=== PATIENT | male | born 1960 | race Caucasian/White ===

== ENCOUNTER 2016-09-19 18:16 | Emergency (ER) | payer OTHER ==
[2016-09-19 18:30] VITALS: BP 176/84
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
== END 2016-09-19 21:14 | disposition home or self-care (01) ==
LOC: ED 18:16
DX: M54.9 Dorsalgia, unspecified (principal); R51 Headache; Z04.1 Encounter for examination and observation following transport accident
CPT/HCPCS: 70450; 99282

== ENCOUNTER 2018-12-03 15:09 | Emergency (ER) | payer OTHER, BC ==
--- NOTE | 2018-12-03 18:43 | ED ---
Neurological HPI - HPI Summary HPI Summary: 58 yo male [place] [facility] accompanied by his . Pt tells me that for the last week has felt fatigued and has had an intermittent mild generalized headache. Yesterday he developed some left lower lip numbness. Today his daughter came home from [place] and remarked that pt's left mouth looked like it was drooping. Pt's agreed with this and brought him to the ED for concerns about CVA. Pt currently endorses left lower lip numbness and very mild headache, but no other symptoms. He did have a cold about 2-3 weeks ago, but has improved. Denies fever, chills, SOB, chest pain, palpitations, abdominal pain, n/v, dizziness, weakness, or vision changes. PMHx positive for HTN and HLD. Fam hx in mother and father with CVA. - History of Current Complaint Chief Complaint: EDNeurologicalDeficit Stated Complaint: LIGHTHEADED/NUMBNESS LT SIDE MOUTH PER PT Time Seen by Provider: 12/03/18 18:43 Hx Obtained From: Patient, Family/Burial Agent Pain Intensity: 0 - Allergy/Home Medications Allergies/Adverse Reactions: Allergies Allergy/AdvReac Type Severity Reaction Status Date / Time No Known Allergies Allergy Verified 12/03/18 15:17 Home Medications: Home Medications Aspirin 81 mg CHEW TAB* [Aspirin Low Dose TAB*] 81 mg PO DAILY 12/03/18 [ History Confirmed 12/03/18] Losartan TAB* [Cozaar TAB*] 50 mg PO DAILY 12/03/18 [History Confirmed 12/03/18] Simvastatin 20 mg PO DAILY 12/03/18 [History Confirmed 12/03/18] PMH/Surg Hx/FS Hx/Imm Hx Endocrine/Hematology History: Denies: Hx Anticoagulant Therapy - ASA daily, Hx Blood Disorders, Hx Unexplained Bleeding - Surgical History Surgery Procedure, Year, and Place: inguinal hernia repair, appendectomy Infectious Disease History: No Infectious Disease History: Denies: Traveled Outside the [place] in Last 30 Days - Family History Known Family History: Positive: None - Social History Alcohol Use: Daily Alcohol Amount: wine Substance Use Type: Reports: None Smoking Status (MU): Former Smoker Review of Systems Constitutional: Negative Eyes: Negative ENT: Negative Cardiovascular: Negative Respiratory: Negative Gastrointestinal: Negative Genitourinary: Negative Musculoskeletal: Negative Skin: Negative Positive: Headache, Numbness - left lip Psychological: Normal All Other Systems Reviewed And Are Negative: Yes Physical Exam - Summary Physical Exam Summary: GENERAL: NAD. WDWN. No pain distress. SKIN: No rashes, sores, ulcers, masses, lesions. HEENT: Head: AT/NC. Eyes: PERRLA. EOM intact. Conjunctiva clear without inflammation or discharge. Ears: Hearing grossly normal. TMs intact, no bulging, erythema, or edema. No hemotympanum Nose: Nasal mucosa pink and moist. NTTP maxillary and frontal sinus. Throat: Posterior oropharynx without exudates, erythema, or tonsillar enlargement. Uvula midline. NECK: Supple. Nontender. FROM CHEST: CTAB. No r/r/w. No accessory muscle use. Breathing comfortably and in no distress. CV: RRR. Without m/r/g. Pulses intact. Brisk cap refill. ABDOMEN: Soft. NTTP. Bowel sounds present MSK: FROM in B/L UEs and LEs with symmetric strength. NEURO: A&Ox3. 3 word recall, remote, recent memory, ability to follow 2-step directions, and attention intact. CN: II: Peripheral live intact. Vision normal. III, IV, : EOMI. No nystagmus. PERRLA. V: Sensations intact and symmetric. Opens mouth and clenches teeth. VII: No facial asymmetry. Forehead wrinkles. Grins, shuts eyes, frowns, puffs cheeks. VIII: Hearing intact to finger rub. IX, X: Swallows and coughs. Uvula midline. XI: Shrugs shoulders. Turns head against resistance. XII: No tongue deviation [id number] are intact. Gait with normal base. Romberg: maintains balance, no pronator drift. Normal speech. No facial drooping. PSYCH: Age appropriate behavior. Triage Information Reviewed: Yes Vital Signs On Initial Exam: Initial Vitals Temp Pulse Resp BP Pulse Ox 97.4 F 68 16 166/118 97 12/03/18 15:11 12/03/18 15:11 12/03/18 15:11 12/03/18 15:11 12/03/18 15:11 Vital Signs Reviewed: Yes Diagnostics - Vital Signs Vital Signs Temp Pulse Resp BP Pulse Ox 12/03/18 15:11 97.4 F 68 16 166/118 97 - Laboratory Lab Results: Laboratory Tests 12/03/18 12/03/18 19:03 19:03 WBC 6.4 RBC 4.80 Hgb 14.1 Hct 42 MCV 88 MCH 29 MCHC 33 RDW 14 Plt Count 200 MPV 8.4 Neut % (Auto) 66.9 Lymph % (Auto) 25.0 [place] % (Auto) 6.3 Eos % (Auto) 1.0 Baso % (Auto) 0.8 Absolute Neuts (auto) 4.3 Absolute Lymphs (auto) 1.6 Absolute Monos (auto) 0.4 Absolute Eos (auto) 0.1 Absolute Basos (auto) 0.1 Absolute Nucleated RBC 0 Nucleated RBC % 0 Sodium 137 Potassium 4.1 Chloride 104 Carbon Dioxide 30 Anion Gap 3 BUN 25 H Creatinine 0.96 Est GFR ( Amer) 97.3 Est GFR (Non-Af Amer) 80.5 BUN/Creatinine Ratio 26.0 H Glucose 96 Calcium 8.9 Total Bilirubin 0.50 AST 27 ALT 27 Alkaline Phosphatase 54 Total Protein 6.6 Albumin 4.2 Globulin 2.4 Albumin/Globulin Ratio 1.8 Result Diagrams: 12/03/18 19:03 12/03/18 19:03 Lab Statement: Any lab studies that have been ordered have been reviewed, and results considered in the medical decision making process. NIH Scale - NIH Scale Level of Consciousness: Alert/Keenly Responsive Ask Patient the Month and His/Her Age: Both Correct Ask Pt to Open/Close Eyes and Machine Hand/Release Non-Paretic Hand: Both Correctly Best Gaze (Only Horizontal Eye Movement): Normal Visual Field Testing: No Visual Loss Facial Paresis-Pt to Smile & Close Eyes or Grimace Symmetry: Normal/Symmetrical Motor Function - Right Arm: No Drift-Holds 10 Seconds Motor Function - Left Arm: No Drift-Holds 10 Seconds Motor Function - Right Leg: No Drift-Holds 10 Seconds Motor Function - Left Leg: No Drift-Holds 10 Seconds Limb Ataxia-Must be out of Proportion to Weakness Present: Absent Sensory (Use Pinprick to Test Arms/Legs/Trunk/Face): Normal Best Language (Describe Picture, Name Items): No Aphasia Dysarthria (Read Several Words): Normal Extinction and Inattention: No Abnormality Total Score: 0 Course/Dx - Course Course Of Treatment: EKbpm Sinus martine. No STEMI as read by Dr. Easton. CT : IMPRESSION: 1. No acute intracranial hemorrhage or acute territorial type infarct. 2. There is minimal periventricular white matter hypodensity, likely. representing small vessel ischemic disease in a patient this age. 3. If further evaluation is clinically indicated, an MRI of the brain is. recommended. Given pt symptoms/risk factors, CT findings, and fam hx - consulted with Dr. Vickers of neurology as below -- MRI was able to be obtained. MRI: IMPRESSION: 1. No restricted diffusion within the brain to suggest acute ischemic change. 2. There are several tiny foci of FLAIR hyperintensity within the cerebral. white matter. In a patient this age, this likely represents chronic small. vessel ischemic disease. 3. There is an increase in FLAIR signal intensity involving the left transverse. and sigmoid venous sinuses, suggestive of slow flow or thrombosis. This can be. further evaluated with MRV. 4. Minimal to mild sulcal atrophy. Spoke with Dr. Vickers at 2245 and discussed MRI results. She recommended attending eval pt and consider CT venous to further evaluate, but advised contacting radiology given already having contrast with MR. Examined with Dr. Boles 2300 and she agreed with the plan. Spoke with Dr. Moss of radiology - ideal to wait at least 24hrs due to increased risk of renal injury, but if clinically indicated and may change care then proceed with CTV. Pt was given 1L NS and CTV ordered as potential benefit of imaging was greater than the potential risk of renal injury. At this time, pt's approached me and made me aware that pt has been bitten by many ticks in his lifetime and has had lyme disease in the past. Will add on a test for a lyme panel. CTV: IMPRESSION: 1. No abnormal enhancing intracranial mass is identified. 2. There is normal enhancement of the dural venous sinuses, without evidence of. thrombosis. Discussed results with pt and family with Dr. Boles. At this time, pt's daughter was present during the conversation (whom initially saw mouth "droop"). Daughter stated that it was 12/01 that she noticed this "droop". All questions were answered. At this time, I do not believe pt suffered a TIA. Pt was instructed to hydrate with lots of water given his contrasted studies today. If his symptoms worsen if he develops new symptoms to return to the ED. Pt voiced understanding and agrees with the plan. - Diagnoses Provider Diagnoses: Facial numbness - Physician Notifications Discussed Care Of Patient With: Lulu Vickers Time Discussed With Above Provider: 21:00 - If able, obtain MRI given significant risk factors and continued symptoms. Discharge - Sign-Out/Discharge Documenting (check all that apply): Patient Departure Patient Received Moderate/Deep Sedation with Procedure: No - Discharge Plan Condition: Stable Disposition: HOME Patient Education Materials: Paresthesia (ED) Referrals: Dylan Estrada MD [Primary Care Provider] - As Soon As Possible Additional Instructions: If you develop a fever, shortness of breath, chest pain, new or worsening symptoms - please call your PCP or go to the ED. Please schedule a follow up appointment with your Primary Doctor as soon as possible for a recheck. Your lyme disease test is still pending and will likely take 3-5 days to be completed. Please check with your primary doctor for these results. Drink plenty of water - Billing Disposition and Condition Condition: STABLE Disposition: Home
[2018-12-03 19:13] LABS: ABS Basophils 0.1 10^3/ul (0-0.2); ABS Eosinophils 0.1 10^3/ul (0-0.6); ABS Lymphocytes 1.6 10^3/ul (1.0-4.8); ABS Monocytes 0.4 10^3/ul (0-0.8); ABS Neutrophils 4.3 10^3/ul (1.5-7.7); ABS Nucleated RBC 0 10^3/ul; Hematocrit 42 % (36-46); Hemoglobin 14.1 g/dL (14.0-18.0); Mean Corpuscular HGB Conc 33 g/dL (31-36); Mean Corpuscular Hemoglobin 29 pg (27-31); Mean Corpuscular Volume 88 fL (80-94); Mean Platelet Volume 8.4 fL (7.4-10.4); Nucleated Red Blood Cells % 0; Platelet Count 200 10^3/uL (150-450); Red Cell Distribution Width 14 % (10.5-15); White Blood Count 6.4 10^3/uL (3.5-10.8)
[2018-12-03 19:28] LABS: Albumin 4.2 g/dL (3.2-5.2); Albumin/Globulin Ratio 1.8 (1-3); Calcium 8.9 mg/dL (8.6-10.3); EGFR African American 97.3 (>60); EGFR Non-African American 80.5 (>60); Globulin 2.4 g/dL (2-4); Potassium 4.1 mmol/L (3.5-5.0); Total Bilirubin 0.5 mg/dL (0.2-1.0); Total Protein 6.6 g/dL (6.4-8.9)
[2018-12-03] MEDS ORDERED: Gadoteridol* (CONTRAST) 279.3 MG/ML 10 ML IV ONE (21:29)
[2018-12-03] MEDS ORDERED: NS 0.9% 1000 ML** 1,000 ML IV ONE (23:45)
[2018-12-04] MEDS ORDERED: Iohexol 300* (CONTRAST) 10 ML SDV IV ONE (00:36)
--- NOTE | 2018-12-04 00:48 | PN ---
Progress Note - Progress Note Date of Service: 12/03/18 Note: 58 yo M seen with MIS Jones. Pt with hx HTN, HLD, who presents to ED with concern regarding facial droop noted by his and daughter today, that pt never noticed,
[2018-12-04 02:38] VITALS: BP 155/86
[2018-12-08 17:18] LABS: Anaplasma phagocytophilium <1:64 titer (<1:64); Babesiosis Evaluation <1:64 titer (<1:64); Lyme Disease Serology Negative (Negative)
== END 2018-12-04 02:38 | disposition home or self-care (01) ==
LOC: ED 15:09
DX: R20.0 Anesthesia of skin (principal); R51 Headache; R53.83 Other fatigue; Z87.891 Personal history of nicotine dependence; Z79.82 Long term (current) use of aspirin
CPT/HCPCS: 36415; 70450; 70460; 70553; 80053; 85025; 86618; 86666; 86753; 93005; 96361; 96374; 96375; 99283; Q9967